=== PATIENT | male | born 1965 | race Caucasian/White ===

== ENCOUNTER 2024-07-08 09:10 | Outpatient (CLI) | payer OTHER ==
[2024-07-08 10:04] LABS: Hematocrit 40.1 % (38.8-50.0); Hemoglobin 13.8 g/dL (13.5-17.5); Mean Corpuscular HGB CONC 34.4 g/dL (32.0-36.0); Mean Corpuscular Hemoglobin 33.4 pg (27.0-33.0); Mean Corpuscular Volume 97.1 fL (81.2-95.1); Mean Platelet Volume 8.8 fL (7.4-10.4); Platelet Count 256 10x3/uL (150-450); RBC Distribution Width 13.1 % (11.5-14.5); Red Blood Cell (RBC) Count 4.13 10x6/uL (4.32-5.72); White Blood Cell (WBC) Count 8.1 10x3/uL (3.5-10.5)
[2024-07-08 10:18] LABS: Prothrombin Time 10.6 sec (9.5-12.1)
[2024-07-08 10:25] LABS: Anion Gap 15 mmol/L (10-20); BUN (Urea Nitrogen) 22 mg/dL (8.4-25.7); Calc. Creatinine Clearance 0 mL/min (70-130); Calcium 9.4 mg/dL (7.8-10.44); Carbon Dioxide 28 mmol/L (22-29); Chloride 102 mmol/L (98-107); Estimated GFR 69; Glucose 180 mg/dL (70-105); Potassium 3.7 mmol/L (3.5-5.1); Sodium 141 mmol/L (136-145)
[2024-07-08 14:42] LABS: Hemoglobin A1c 5.6 % (4.0-6.0)
== END 2024-07-08 09:11 | disposition home or self-care (01) ==
LOC: CSHLAB 09:10
PROVIDERS: ATTEND Orthopaedic Surgery
DX: Z01.818 Encounter for other preprocedural examination (principal); M17.11 Unilateral primary osteoarthritis, right knee; R94.31 Abnormal electrocardiogram [ECG] [EKG]
CPT/HCPCS: 80048; 82306; 83036; 85027; 85610; 87081; 93005; 93010